=== PATIENT | female | born 1990 | race Two or more races ===

== ENCOUNTER 2019-09-15 12:11 | Emergency (ER) | payer MEDICAID ==
[~2019-09-15] VITALS: Ht 160 cm; Wt 72.6 kg
[2019-09-15] MEDS ORDERED: VITAFOL-OB CAP1 EACH PO (12:17)
[2019-09-15 14:06] LABS: BILIRUBIN, URINE NEGATIVE (NEGATIVE); GLUCOSE, URINE (UA) NEGATIVE (NEGATIVE); KETONES,URINE 2+ (NEGATIVE); LEUKOCYTE ESTERASE ,URINE 2+ (NEGATIVE); NITRITE,URINE NEGATIVE (NEGATIVE); PH,URINE 8 (4.5-8.0); PROTEIN,URINE NEGATIVE (NEGATIVE); UROBILINOGEN,URINE NORMAL MG/DL (0.0-1.0)
[2019-09-15 14:08] LABS: APPEARANCE,URINE CLOUDY; COLOR,URINE YELLOW
--- NOTE | 2019-09-15 14:34 | Emergency Room Report ---
History of Present Illness General Chief Complaint: Headache Source: Patient (Kellen Richmond) Present Illness HPI 29-year-old female presents to the emergency department complaining of 10 out of 10 severity headache x3 days. Patient reports she is G2, P1 and currently 14 weeks . Patient reports history of headaches in the past which have presented the same way her headache is presenting today. Patient reports some nausea she denies sensitivity to bright lights and states that her symptoms usually resolve in a dark quiet room with Tylenol. Patient states that she did take Tylenol yesterday and attempted to rest however she has been unable to. Patient reports that her headache is also affecting her ability to sleep. She denies episodes of vomiting she denies dizziness, visual changes, blurry vision , loss of vision, ringing in the ears or ear pain. Patient denies recent head injury. She denies difficulty with speech or swallowing. No other aggravating or relieving factors at this time. She denies dysuria, hematuria, urinary frequency or urgency. Patient reports she does take prenatals daily and she has been following up with her SOIL TECHNOLOGIST regularly as well. She denies hx of HTN or eclampsia. Patient reports previous was normal without complications other than needing to be induced. (Kellen Richmond) Allergies: Coded Allergies: No Known Allergies (Unverified , 09/15/19) Patient History Past Medical History: see triage record Past Surgical History: none Pertinent Family History: none Last Menstrual Period: 06/07/19 Now: Yes - 14 WEEKS : 2 Para: 1 Immunizations: UTD Reviewed Nursing Documentation: PMH: Agreed; PSxH: Agreed (Kellen Richmond) Nursing Documentation-PMH Past Medical History: No Stated History (Kellen Richmond) Review of Systems All Other Systems: negative except mentioned in HPI (Kellen Richmond) Physical Exam Vital Signs Date Time Temp Pulse Resp B/P (MAP) Pulse Ox O2 Delivery O2 Flow Rate FiO2 09/15/19 12:14 98.2 93 18 115/72 (86) 96 Room Air Sp02 EP Interpretation: reviewed, normal General Appearance: no apparent distress, alert, GCS 15, non-toxic Head: normocephalic, atraumatic Eyes: bilateral eye normal inspection, bilateral eye PERRL ENT: hearing grossly normal, normal voice, TMs + canals normal, uvula midline Neck: full range of motion, no meningismus, no bony tend Respiratory: chest non-tender, lungs clear, normal breath sounds, speaking full sentences Cardiovascular #1: regular rate, rhythm Gastrointestinal: non tender, soft Musculoskeletal: normal range of motion, gait/station normal, non-tender Neurologic: alert, motor strength/tone normal, oriented x3, sensory intact, responsive, speech normal, grossly normal, no focal defects, other - No, pronator drift, Negative rhomberg, normal finger to nose, NO hemanopia on confrontation. No nystagmus, both eyes able to cross the midline. visual ewing equal to examiners, No facial droop, equal side framer strength bilaterally. Psychiatric: judgement/insight normal Lymphatic: no adenopathy (Kellen Richmond) Medical Decision Making PA Attestation Dr. Gray Is my supervising Physician whom patient management has been discussed with. (Kellen Richmond) Diagnostic Impression: Primary Impression: Headache Qualified Codes: R51 - Headache Additional Impressions: UTI (urinary tract infection) Qualified Codes: N30.01 - Acute cystitis with hematuria 14 weeks gestation of ER Course 29-year-old female presents to the emergency department complaining of 10 out of 10 severity headache x3 days. Patient reports she is G2, P1 and currently 14 weeks . Patient reports history of headaches in the past which have presented the same way her headache is presenting today. Patient reports some nausea she denies sensitivity to bright lights and states that her symptoms usually resolve in a dark quiet room with Tylenol. Patient states that she did take Tylenol yesterday and attempted to rest however she has been unable to. Patient reports that her headache is also affecting her ability to sleep. She denies episodes of vomiting she denies dizziness, visual changes, blurry vision , loss of vision, ringing in the ears or ear pain. Patient denies recent head injury. She denies difficulty with speech or swallowing. No other aggravating or relieving factors at this time. She denies dysuria, hematuria, urinary frequency or urgency. Patient reports she does take prenatals daily and she has been following up with her SOIL TECHNOLOGIST regularly as well. She denies hx of HTN or eclampsia. Patient reports previous was normal without complications other than needing to be induced. Ddx considered but are not limited to migraine, SAH, Pseudomotor Cerebri,, Mass lesion, Cluster TRUJILLO, Tension TRUJILLO, Post lumbar puncture TRUJILLO. Vital signs: are WNL, pt. is afebrile H&PE are most consistent with migraine headache ORDERS: - UA: Few bacteria, increase in inflammatory markers will treat as UTI. ED INTERVENTIONS: - 10 mg Reglan PO -Benadryl 50mg PO -Tylenol 650mg PO Patient reports that with above interventions her headache has been reduced and she is found to be sleeping in the room in no acute distress. Patient significant other who is bedside feels that the patient is ready to go home after receiving all results from urinalysis will discharge patient with strict ED return precautions and close follow-up with SOIL TECHNOLOGIST and PCP. DISCHARGE: At this time pt. is stable for d/c to home. Will provide printed patient care instructions, and any necessary prescriptions. Care plan and follow up instructions have been discussed with the patient prior to discharge. Labs Test 09/15/19 13:15 Urine Color Yellow Urine Appearance Cloudy Urine pH 8 (4.5-8.0) Urine Specific Crane 1.010 (1.005-1.035) Urine Protein Negative (NEGATIVE) Urine Glucose (UA) Negative (NEGATIVE) Urine Ketones 2+ (NEGATIVE) Urine Blood Negative (NEGATIVE) Urine Nitrite Negative (NEGATIVE) Urine Bilirubin Negative (NEGATIVE) Urine Urobilinogen Normal MG/DL (0.0-1.0) Urine Leukocyte Esterase 2+ (NEGATIVE) Urine RBC 0-2 /HPF (0 - 2) Urine WBC 10-15 /HPF (0 - 2) Urine Squamous Epithelial Cells Many /LPF (NONE/OCC) Urine Amorphous Sediment Many /LPF (NONE) Urine Bacteria Few /HPF (NONE) Urine HCG, Qualitative Positive (NEGATIVE) (Kellen Richmond) Last Vital Signs Date Time Temp Pulse Resp B/P (MAP) Pulse Ox O2 Delivery O2 Flow Rate FiO2 09/15/19 12:14 98.2 93 18 115/72 (86) 96 Room Air (Kellen Richmond) Last Vital Signs Date Time Temp Pulse Resp B/P (MAP) Pulse Ox O2 Delivery O2 Flow Rate FiO2 09/15/19 19:38 98.2 80 18 115/72 96 Room Air As patient documented as sleeping, doubt reported pain 10/10 by RN. Status: improved (Pete Gray MD) Disposition: HOME, SELF-CARE Condition: Improved Scripts Cephalexin* (KEFLEX*) 500 Mg Capsule 500 MG ORAL EVERY 12 HOURS for 7 Days, #14 CAP 0 Refills Prov: Kellen Richmond 09/15/19 Diphenhydramine Hcl* (BENADRYL*) 25 Mg Capsule 25 MG ORAL Q6H PRN for headache, #30 CAP Prov: Kellen Richmond 09/15/19 Acetaminophen* (TYLENOL EXTRA STRENGTH*) 500 Mg Tablet 500 MG ORAL Q6H, #20 TAB 0 Refills Prov: Kellen Richmond 09/15/19 Metoclopramide Hcl* (REGLAN*) 10 Mg Tablet 10 MG ORAL THREE TIMES A DAY, #9 TAB Prov: Kellen Richmond 09/15/19 Referrals: NON PHYSICIAN (PCP) Patient Instructions: General Headache Without Cause Additional Instructions: Take medications as directed. Follow up with a Primary Care Provider in 3-5 days For a referral to have NEUROLOGIST Evaluation, even if your symptoms have resolved. ALSO follow up with your OBGYN regularly. --Please review list of primary care clinics, if you do not already have a primary care provider Return sooner to ED if new symptoms occur, or current symptoms become worse. - Please note that this Emergency Department Report was dictated using [employer] ([employer]director safety technology software, occasionally this can lead to erroneous entry secondary to interpretation by the dictation equipment. Kellen Richmond Sep 15, 2019 14:34 Pete Gray MD Sep 16, 2019 02:14
[2019-09-15] MEDS ORDERED: REGLAN10 MG ORAL (14:36)
[2019-09-15] MEDS ORDERED: BENADRYL25 MG ORAL (14:36)
[2019-09-15] MEDS ORDERED: TYLENOL EXTRA500 MG ORAL (14:36)
--- NOTE | 2019-09-15 14:38 | NUR ---
ED Nurse Note: Patient cleared for DC by Kellen PIERRE. Patient AxO x 4, no s/s of acute distress. ID band removed. Patient walks with steady gait, took all belongings.
[2019-09-15] MEDS ORDERED: CEPHALEXIN500 MG ORAL (14:48)
[2019-09-15 19:38] VITALS: BP 115/72
== END 2019-09-15 14:38 | disposition home or self-care (01) ==
LOC: EMR 13:20
DX: O26.91 Pregnancy related conditions, unspecified, first trimester (principal); R51 Headache; O23.41 Unspecified infection of urinary tract in pregnancy, first trimester; N30.01 Acute cystitis with hematuria
CPT/HCPCS: 81003; 81025; 87086; Z7502; 99283